=== PATIENT | female | born 1995 | race Caucasian/White ===

== ENCOUNTER 2021-11-03 18:15 | Emergency (ER) | payer OTHER ==
[~2021-11-03] VITALS: Ht 175.3 cm; Wt 81.7 kg
== END 2021-11-03 20:15 | disposition home or self-care (01) ==
LOC: ER 18:15
DX: S61.217A Laceration without foreign body of left little finger without damage to nail, initial encounter (principal); W25.XXXA Contact with sharp glass, initial encounter
CPT/HCPCS: 12002; 99282-25